=== PATIENT | male | born 1970 | race Hispanic/Latino ===

== ENCOUNTER 2023-03-12 12:36 | Day surgery (SDC) | payer OTHER ==
[2023-03-06 10:46] VITALS: BMI 39.1
[2023-03-12] MEDS ORDERED: PROPOFOL 20 ML ONE ×2 (13:57→13:59)
== END 2023-03-12 14:41 | disposition home or self-care (01) ==
LOC: CSHSDC 12:36
PROVIDERS: ATTEND Internal Medicine Gastroenterology
DX: Z12.11 Encounter for screening for malignant neoplasm of colon (principal); K64.9 Unspecified hemorrhoids; E66.9 Obesity, unspecified; I10 Essential (primary) hypertension; E11.9 Type 2 diabetes mellitus without complications; E78.5 Hyperlipidemia, unspecified; M19.90 Unspecified osteoarthritis, unspecified site; Z79.899 Other long term (current) drug therapy
CPT/HCPCS: J2704